=== PATIENT | female | born 1955 ===

== ENCOUNTER 2017-07-19 18:29 | Emergency (ER) | payer SELFPAY ==
[2017-07-19 19:06] VITALS: BP 159/82; PULSE 78; RESP 18; TEMP 98.3; O2SAT 99
--- NOTE | 2017-07-19 20:26 | ED PDOC ---
HPI: General Adult Time Seen by Provider: 07/19/17 19:59 Chief Complaint (Nursing): Upper Extremity Problem/Injury Chief Complaint (Provider): Neck pain History Per: Patient History/Exam Limitations: no limitations Onset/Duration Of Symptoms: Days (x4), Worse Since (onset) Current Symptoms Are (Timing): Still Present Additional Complaint(s): Sherry Orellana is a 61 year old female, with a past medical history of gastritis, who presents to the emergency department complaining of a worsening chronic neck pain onset for the past x4 days. Patient reports the pain is localized to the center of the neck. Patient states symptoms are not new but pain was too severe which prompted ED visit. She has not seen a doctor regarding symptoms because she recently arrived from [facility] and has no PMD. She took Fioricet this morning with no relief. She denies any fever, chills, chest pain, shortness of breath, nausea, vomit, diarrhea or abdominal pain. No further medical complaints. PMD: None provided. Past Medical History Reviewed: Historical Data, Nursing Documentation, Vital Signs Vital Signs: Last Vital Signs Temp 98.3 F 07/19/17 19:03 Pulse 78 07/19/17 19:03 Resp 18 07/19/17 19:03 BP 159/82 H 07/19/17 19:03 Pulse Ox 99 07/19/17 20:28 - Medical History PMH: Gastritis - Surgical History Surgical History: No Surg Hx - Family History Family History: States: No Known Family Hx - Social History Current smoker - smoking cessation education provided: Yes (Heavy smoker >10 cigarettes daily) Alcohol: None Drugs: Denies - Home Medications Home Medications: Ambulatory Orders Medication Instructions Recorded traMADol [Ultram] 50 mg PO Q6H PRN #15 tab 07/19/17 - Allergies Allergies/Adverse Reactions: Allergies Allergy/AdvReac Type Severity Reaction Status Date / Time No Known Allergies Allergy Verified 07/19/17 19:02 Review of Systems ROS Statement: Except As Marked, All Systems Reviewed And Found Negative Constitutional: Negative for: Fever, Chills Cardiovascular: Negative for: Chest Pain Respiratory: Negative for: Shortness of Breath Gastrointestinal: Negative for: Nausea, Vomiting, Abdominal Pain, Diarrhea Musculoskeletal: Positive for: Neck Pain Physical Exam - Reviewed Nursing Documentation Reviewed: Yes Vital Signs Reviewed: Yes - Physical Exam Appears: Positive for: Non-toxic, No Acute Distress Head Exam: Positive for: ATRAUMATIC, NORMAL INSPECTION, NORMOCEPHALIC Skin: Positive for: Normal Color, Warm, Dry Eye Exam: Positive for: Normal appearance, EOMI, PERRL ENT: Positive for: Normal ENT Inspection Neck: Positive for: Painless ROM, Supple Cardiovascular/Chest: Positive for: Regular Rate, Rhythm. Negative for: Murmur Respiratory: Positive for: Normal Breath Sounds. Negative for: Respiratory Distress Back: Positive for: Normal Inspection. Negative for: L CVA Tenderness, R CVA Tenderness, Vertebral Tenderness Extremity: Positive for: Normal ROM (upper and lower extremities). Negative for : Deformity, Swelling Neurologic/Psych: Positive for: Alert, route relief driver II-XII, Oriented (x3), Mood/Affect, Cerebellar Tests, Gait. Negative for: Motor/Sensory Deficits, Aphasia, Facial Droop - ECG O2 Sat by Pulse Oximetry: 99 (RA) Pulse Ox Interpretation: Normal Medical Decision Making Medical Decision Making: Initial Impression: Neck pain Initial Plan: --Ultram 50 mg PO --Reevaluation 2109 - Pt reports feeling much better and states she would like to go home. ~ Scribe Attestation: Documented by Fitz Hauser, acting as a scribe for Aurora Ramos PA-C. Provider Scribe Attestation: All medical record entries made by the Scribe were at my direction and personally dictated by me. I have reviewed the chart and agree that the record accurately reflects my personal performance of the history, physical exam, medical decision making, and the department course for this patient. I have also personally directed, reviewed, and agree with the discharge instructions and disposition. Disposition - Clinical Impression Clinical Impression: Chronic neck pain - Patient ED Disposition Is Patient to be Admitted: No Counseled Patient/Family Regarding: Diagnosis, Need For Followup, Rx Given - Disposition Disposition: Routine/Home Disposition Time: 21:12 Condition: GOOD Prescriptions: traMADol [Ultram] 50 mg PO Q6H PRN #15 tab PRN Reason: Pain Instructions: Neck Pain Forms: [facility] ([place])
== END 2017-07-19 21:22 | disposition home or self-care (01) ==
LOC: H.ER 18:29
DX: M54.2 Cervicalgia (principal); G89.29 Other chronic pain